=== PATIENT | male | born 1975 | race Caucasian/White ===

== ENCOUNTER 2019-03-13 16:33 | Emergency (ER) | payer OTHER, SELFPAY ==
[2019-03-13 17:02] VITALS: BP 167/104; PULSE 92; RESP 18; TEMP 36.6; O2SAT 97; BMI 34.3
--- NOTE | 2019-03-13 18:39 | XR_ITS ---
WS: [id number] CHEST 2 VIEWS HISTORY: cough COMPARISON: 05/11/2006 Lungs: Clear with no abnormality. No pleural effusion or pneumothorax. Cardiac size: Normal. Mediastinum/Aorta: Normal mediastinum. Bones: Degenerative changes at the AC joints. XR/XR chest 2V* [id number] IMPRESSION: Normal chest.
--- NOTE | 2019-03-13 20:55 | W.ED.URI ---
HPI - URI/Sore Throat General: Chief Complaint: Upper Respiratory Infection Stated Complaint: face swelling Time Seen by Provider: 03/13/19 20:48 History of Present Illness: HPI Narrative: Patient has had nasal congestion, productive cough and chills starting 6 days ago. He has had nasal drainage but no sore throat. Patient also woke up today and had some right-sided facial swelling and tenderness upon palpation. Patient states he has had a productive cough has been coughing up yellow and white phlegm. He has had the chills but no fever. Denies any nausea, vomiting, abdominal pain, dysuria, hematuria, constipation, diarrhea, blood in the stool, vision changes, ear pain, headache, weakness or numbness and tingling to the extremities. Review of Systems General: Reports: 10 or more systems reviewed and unremarkable except in HPI and below PFSH ED PFSH: Statuses (acute, chronic, etc) shown below reflect problem list status as previously entered and may not be historically accurate Social History Smoking and tobacco status: current every day smoker Physical Exam Const: COMMON NORMALS: oriented x3 HENMT: COMMON NORMALS: normocephalic, TM's normal bilaterally and external nose normal HEAD & SCALP: normocephalic FACE & SINUS: sinuses nontender, facial edema (upper maxillary) on the right and facial tenderness (maxillary) on the right NOSE: external nose normal TYMPANIC MEMBRANE: TM's normal bilaterally MOUTH: oral and palatal mucosa normal TEETH & GINGIVA: Yes caries (teeth 4-6 ), Yes gingiva abnormal (around teeth 4-6) edematous and tender and Yes poor dentition THROAT: posterior oropharynx normal and uvula midline Eye: COMMON NORMALS: PERRL and conjunctivae normal GENERAL EYE: normal appearance of both eyes CONJUNCTIVA: Yes conjunctivae normal PUPIL: Yes PERRL Neck/C-Spine: COMMON NORMALS: supple GENERAL: Yes normal visual inspection Resp: COMMON NORMALS: normal respiratory effort, no retractions, no use of accessory muscles and clear to auscultation bilaterally AUSCULTATION: clear to auscultation bilaterally and wheezes expiratory wheezes and throughout Cardio: COMMON NORMALS: regular rate, regular rhythm, S1 normal heart sound, S2 normal heart sound, no gallops, no clicks, no murmurs and peripheral pulses 2+ throughout RATE: regular rate RHYTHM: regular rhythm HEART SOUNDS: S1 normal and S2 normal PERIPHERAL PULSES: pulses 2+ throughout GI: COMMON NORMALS: normal to inspection, nondistended, normoactive bowel sounds, soft to palpation, non-tender and no masses PALPATION: Yes soft : COMMON NORMALS: Yes no CVA tenderness BLADDER/KIDNEY EXAM: Yes no CVA tenderness Back/Pelvis: COMMON NORMALS: no CVA tenderness Neuro: COMMON NORMALS: oriented x3 Course ED course: Patient was given a breathing treatment (DuoNeb) in the ED. He'll be sent home with albuterol inhaler. Chest x-ray was performed and pending final radiologist's report. I reviewed the chest x-ray looked like patient has acute bronchitis and possible pneumonia forming. Patient will be put on an antibiotic and steroid. Vital Signs: Vital signs: Vital Signs Temperature 97.8 F 03/13/19 17:02 Pulse Rate 85 03/13/19 23:26 Respiratory Rate 18 03/13/19 23:26 Blood Pressure 132/76 03/13/19 23:26 Pulse Oximetry 95 03/13/19 23:26 MDM - URI/Sore Throat Lab Data: Labs: Lab Results 03/13/19 03/13/19 03/13/19 Range/Units 21:56 22:04 22:04 WBC 12.5 H (4.0-10.0) 10^3/ uL RBC 4.81 (4.1-5.3) 10^6/u L Hgb 15.0 (11.7-16.6) g/dL Hct 44.7 (42.0-52.0) % MCV 92.9 (80-94) fL MCH 31.2 (28.0-34.0) pg MCHC 33.6 (30.0-36.0) g/dL RDW 11.9 L (12.1-15.1) % Plt Count 343 (130-400) 10^3/c mm MPV 8.6 (7.4-10.4) fL Neut % (Auto) 62.9 % Lymph % (Auto) 26.9 % [place] % (Auto) 7.5 % Eos % (Auto) 2.0 % Baso % (Auto) 0.4 % Neut # (Auto) 7.8 H (1.8-7.7) 10^3/u L Lymph # (Auto) 3.4 (0.8-4.8) 10^3/u L [place] # (Auto) 0.9 (0.2-0.9) 10^3/u L Eos # (Auto) 0.3 (0.0-0.8) 10^3/u L Baso # (Auto) 0.1 (0.0-0.1) 10^3/u L Nucleated RBC % (a uto) 0 % Nucleated RBCs # 0.0 /100WBC Sodium 136 (136-145) mmol/L Potassium 3.6 (3.5-5.1) mmol/L Chloride 97 L (98-107) mmol/L Carbon Dioxide 27 (22-29) mmol/L Anion Gap 15.6 (5-19) BUN 8 (6-20) mg/dL Creatinine 0.8 (0.7-1.2) mg/dL GFR Calculation 106.5 (90-130) mL/min Glucose 113 H (74-109) mg/dL Calcium 9.8 (8.6-10.0) mg/Dl Total Bilirubin 0.4 (0.15-1.2) mg/dL AST 28 (0-40) U/L ALT 25 (0-41) U/L Alkaline Phosphata se 158 H (40-130) IU/L Total Protein 7.8 (6.6-8.7) g/dL Albumin 4.6 (3.5-5.2) g/dL Globulin 3.2 (1.3-4.6) g/dL Influenza Type A A g Negative (Negative) POC Influenza B Ag Negative (Negative) Discharge Plan Discharge Patient Disposition: Home, Self-Care Clinical Impression: Bronchitis with acute wheezing, Dental abscess Condition: Stable Prescriptions: New prednisone 20 mg tablet 20 mg PO TID Qty: 15 RF: 0 clindamycin HCl 150 mg capsule 150 mg PO Q6H 7 Days Qty: 28 RF: 0 albuterol sulfate 90 mcg/actuation HFA aerosol inhaler 2 inh INHALATION Q8H PRN (Reason: shortness of breath or wheezing) Qty: 18 RF: 0 No Action No Known Home Medications RF: 0 Discharge Orders: Discharge Order (Routine); Ordered 03/13/19 Ordered By: Sohail Hendrickson Discharge Diet: Regular Discharge Activity: Resume usual activity Activity Restrictions/Additional Instructions: Follow-up with her primary care doctor in 5-7 days for reevaluation. Take full course of antibiotics and steroids as prescribed. Also use prescribed albuterol inhaler as needed for shortness of breath and wheezing. Also schedule an appointment with a dentist to evaluate possible dental abscess and dental pain. Take [id number] Tylenol or ibuprofen as needed for pain and fever control. Discharge Date/Time: 03/13/19 23:29 Coding Level of Care Code ED [employer] for Kirti Lancaster
[2019-03-13] MEDS: predniSONE 20 mg Tablet 60 MG PO (21:37)
[2019-03-13] MEDS: ketorolac 30 mg/mL INJ IM (21:37)
[2019-03-13] MEDS: ipratropium-albuterol 3 mL Neb INHALATION (22:07)
[2019-03-13 22:08] VITALS: PULSE 85; RESP 18; O2SAT 97
[2019-03-13 22:11] VITALS: PULSE 75; RESP 18; O2SAT 99
[2019-03-13 22:19] LABS: Influenza A by IFA Negative (Negative); Influenza B by IFA Negative (Negative)
[2019-03-13 22:19] LABS: Basophils # 0.1 10^3/uL (0.0-0.1); Basophils % 0.4 %; Eosinophils # 0.3 10^3/uL (0.0-0.8); Hematocrit 44.7 % (42.0-52.0); Lymphocytes # 3.4 10^3/uL (0.8-4.8); Lymphocytes % 26.9 %; Mean Corpuscular HGB Conc 33.6 g/dL (30.0-36.0); Mean Corpuscular Hemoglobin 31.2 pg (28.0-34.0); Mean Corpuscular Volume 92.9 fL (80-94); Mean Platelet Volume 8.6 fL (7.4-10.4); Monocytes # 0.9 10^3/uL (0.2-0.9); Monocytes % 7.5 %; Neutrophils # 7.8 10^3/uL (1.8-7.7); Neutrophils % 62.9 %; Nucleated Red Blood Cells % 0 %; Platelet Count 343 10^3/cmm (130-400); Red Blood Count 4.81 10^6/uL (4.1-5.3); Red Cell Distribution Width 11.9 % (12.1-15.1); White Blood Count 12.5 10^3/uL (4.0-10.0)
[2019-03-13 22:28] LABS: Alanine Aminotransferase 25 U/L (0-41); Albumin Level 4.6 g/dL (3.5-5.2); Alkaline Phosphatase 158 IU/L (40-130); Anion Gap 15.6 (5-19); Aspartate Amino Transferase 28 U/L (0-40); Blood Urea Nitrogen 8 mg/dL (6-20); Calcium 9.8 mg/Dl (8.6-10.0); Carbon Dioxide 27 mmol/L (22-29); Chloride 97 mmol/L (98-107); Globulin 3.2 g/dL (1.3-4.6); Glomerular Filtration Rate 106.5 mL/min (90-130); Glucose 113 mg/dL (74-109); Potassium 3.6 mmol/L (3.5-5.1); Sodium 136 mmol/L (136-145); Total Bilirubin 0.4 mg/dL (0.15-1.2); Total Protein 7.8 g/dL (6.6-8.7)
[2019-03-13 23:26] VITALS: BP 132/76; PULSE 85; RESP 18; O2SAT 95
== END 2019-03-13 23:29 | disposition home or self-care (01) ==
PROVIDERS: Emergency Provider Physician Assistant
DX: J40 Bronchitis, not specified as acute or chronic (principal); K04.7 Periapical abscess without sinus; F17.210 Nicotine dependence, cigarettes, uncomplicated
CPT/HCPCS: 36415; 71046; 80053; 85025; 87040; 87804; 96372; 99282; 99283; J1885; J7512

== ENCOUNTER 2019-05-02 23:56 | Inpatient (IN) | payer OTHER, SELFPAY ==
[2019-05-03] VITALS (52 sets, daily range): BP systolic 97–137; BP diastolic 48–80; PULSE 76–106; RESP 14–24; TEMP 36.6–38.1; O2SAT 92–98; BMI 34.3
--- NOTE | 2019-05-03 00:13 | ED_ITS ---
Documented by User: ARCHANA Morrison 05/03/19 02:28 HPI - Abdominal Pain General: Chief Complaint: Abdominal Pain Stated Complaint: ABD PAIN Time Seen by Provider: 05/03/19 00:10 History of Present Illness: HPI narrative: Patient is a 44-year-old male comes in to the ED with abdominal pain. Patient first had nausea and vomiting and loss of appetite yesterday. He was having some mild periumbilical pain that has since progressed and gotten worse and now it has moved down into the right lower quadrant. The pain in the abdomen got worse while he was sleeping tonight and he woke up in intense pain. Associated Symptoms: Reports nausea and vomiting; Denies chills, constipation, diarrhea, dysuria, fever(s), hematochezia and hematuria Review of Systems Const: Reports: change in appetite (decrease in appetite); Denies: fever, chills or fatigue Eyes: Denies: change in vision or eye discomfort ENMT: Denies: throat pain, painful swallowing, nasal discharge or nasal congestion Card: Denies: chest pain, palpitations, edema, swelling of feet/ankles, shortness of breath on exertion or shortness of breath when lying down Resp: Denies: shortness of breath, productive cough or non-productive cough GI: Reports: abdominal pain, nausea and vomiting; Denies: diarrhea, constipation or blood in stool : Denies: flank pain, difficulty urinating, painful urination or blood in urine Musc: Denies: neck pain, back pain or extremity swelling Skin/Breast: Denies: rash or new lesion Neuro: Denies: headache, numbness in extremities or weakness in extremities PFS ED PFSH: Social History Smoking and tobacco status: current every day smoker Physical Exam Narrative: EXAM NARRATIVE: Patient is a 44-year-old male who appears in acute pain distress lying in the room. He was lying flat and moaning in pain. His face looked pale. He was showing no signs of respiratory distress. Patient was severely tender in the right lower quadrant of the abdomen. Patient also had some rebound tenderness as well. Patient's abdomen was extremely tender and even tender to light touch. Const: COMMON NORMALS: oriented x3 HENMT: COMMON NORMALS: normocephalic HEAD & SCALP: normocephalic MOUTH: oral and palatal mucosa normal THROAT: posterior oropharynx normal and uvula midline Neck/C-Spine: COMMON NORMALS: supple GENERAL: Yes normal visual inspection Resp: COMMON NORMALS: normal respiratory effort, no retractions, no use of accessory muscles and clear to auscultation bilaterally EFFORT & INSPECTION: Yes tachypneic AUSCULTATION: clear to auscultation bilaterally Cardio: COMMON NORMALS: regular rate, regular rhythm, S1 normal heart sound, S2 normal heart sound, no gallops, no clicks, no murmurs and peripheral pulses 2+ throughout RATE: regular rate RHYTHM: regular rhythm HEART SOUNDS: S1 normal and S2 normal PERIPHERAL PULSES: pulses 2+ throughout GI: COMMON NORMALS: normal to inspection, nondistended, normoactive bowel sounds, soft to palpation and no masses AUSCULTATION: Yes normoactive bowel sounds PALPATION: Yes soft and Yes tender (mcburney pt tenderness, Rovsings sign positive.) Details: RLQ : COMMON NORMALS: Yes no CVA tenderness BLADDER/KIDNEY EXAM: Yes no CVA tenderness Back/Pelvis: COMMON NORMALS: no CVA tenderness Extremity: COMMON NORMALS: normal to inspection Neuro: COMMON NORMALS: oriented x3 GAIT: Yes normal gait Skin: COMMON NORMALS: no rashes or lesions noted GENERAL SKIN EXAM: no rashes or lesions noted, dry skin and pallor (face) Course Vital Signs: Vital signs: Vital Signs Temperature 97.8 F 05/03/19 00:09 Pulse Rate 91 05/03/19 02:05 Respiratory Rate 24 H 05/03/19 00:37 Blood Pressure 108/48 05/03/19 02:05 Pulse Oximetry 95 05/03/19 02:05 MDM - Abdominal Pain MDM Narrative: Medical decision making narrative: Patient is a 44-year-old male comes into the ED with abdominal pain nausea and vomiting. Patient had an elevated white blood cell count of 22.5 and a lactate of 2.4. CT of the abdomen was performed and showed Acute appendicitis with perforationl. Dr. Mcconnell was informed about this case and he talked with the General Surgeon site acquisition manager. Dr. Mcconnell will be taking over this case and handling admission to Gen. Surg. Lab Data: Attestation: I reviewed the patient's lab results. Labs: Lab Results 05/03/19 05/03/19 05/03/19 Range/Units 00:18 00:18 00:18 WBC 22.5 H (4.0-10.0) 10^3/ uL RBC 4.84 (4.1-5.3) 10^6/u L Hgb 14.6 (11.7-16.6) g/dL Hct 43.5 (42.0-52.0) % MCV 89.9 (80-94) fL MCH 30.2 (28.0-34.0) pg MCHC 33.6 (30.0-36.0) g/dL RDW 12.0 L (12.1-15.1) % Plt Count 339 (130-400) 10^3/c mm MPV 8.5 (7.4-10.4) fL Neut % (Auto) 91.0 % Lymph % (Auto) 5.0 % [place] % (Auto) 3.2 % Eos % (Auto) 0.1 % Baso % (Auto) 0.2 % Neut # (Auto) 20.5 H (1.8-7.7) 10^3/u L Lymph # (Auto) 1.1 (0.8-4.8) 10^3/u L [place] # (Auto) 0.7 (0.2-0.9) 10^3/u L Eos # (Auto) 0.0 (0.0-0.8) 10^3/u L Baso # (Auto) 0.0 (0.0-0.1) 10^3/u L Nucleated RBC % (a uto) 0 % Nucleated RBCs # 0.0 /100WBC Sodium 135 L (136-145) mmol/L Potassium 3.4 L (3.5-5.1) mmol/L Chloride 96 L (98-107) mmol/L Carbon Dioxide 23 (22-29) mmol/L Anion Gap 19.4 H (5-19) BUN 11 (6-20) mg/dL Creatinine 1.0 (0.7-1.2) mg/dL GFR Calculation 81.9 L (90-130) mL/min Glucose 144 H (65-115) mg/dL Lactate 2.4 H (0.5-2.2) mmol/L Calcium 9.7 (8.5-10.5) mg/dL Total Bilirubin 0.6 (0.15-1.2) mg/dL AST 23 (0-40) U/L ALT 19 (0-41) U/L Alkaline Phosphata se 132 H (40-130) IU/L Total Protein 6.8 (6.6-8.7) g/dL Albumin 4.3 (3.5-5.2) g/dL Globulin 2.5 (1.3-4.6) g/dL Lipase 14 (13-60) U/L Imaging Data ^: CT Abd/Pel: Attestation: I personally reviewed and interpreted this imaging study as follows: Radiologist's impression: [place] [address] CT Scan Report Signed with Addenda Patient: Onel Rea Unit #: [id number] : 1975 Age/Sex: 44 / M ADM Date: 05/02/19 Loc: ER Room/Bed: Attending Dr: Ordering Provider/Ordering MD: Sohail Hendrickson Date of Service: 05/03/19 Procedure(s): CT abdomen pelvis w con* [id number] Accession Number(s): [id number] Report Number: [id number]/CT abdomen pelvis w con* [id number] THIS REPORT CONTAINS FINDINGS THAT MAY BE CRITICAL TO PATIENT CARE. The findings were verbally communicated via telephone conference with Dr Mcconnell at 2:15 AM RECORD CHANGER TESTER on 05/03/2019. The findings were acknowledged and understood. Radiation Dose CTDIVOL = (mGy): DLP = 1269.6 (mGy-cm) Addendum Dictated By: Kamaljit Robbins MD Addendum Signed By: Kamaljit Robbins MD Signed Date/Time: 0217 Addendum Cosigned By: PROCEDURE INFORMATION: Exam: CT Abdomen And Pelvis With Contrast Exam date and time: 05/03/2019 12:31 AM Age: 44 years old Clinical indication: Abdominal pain; Additional info: Abdom pain TECHNIQUE: Imaging protocol: Computed tomography of the abdomen and pelvis with intravenous contrast. Total DLP: 1269.6 mGy-cm Radiation optimization: All CT scans at this facility use at least one of these dose optimization techniques: automated exposure control; mA and/or kV adjustment per patient size (includes targeted exams where dose is matched to clinical indication); or iterative reconstruction. Contrast material: OMNI 300; Contrast volume: 95 ml; Contrast route: 189G; COMPARISON: No relevant prior studies available. FINDINGS: Lungs: Lung bases are clear. Heart: 5 cm pericardial cyst in the right cardiophrenic sulcus. Liver: The liver is normal. Gallbladder and bile ducts: The gallbladder is normal. There is no biliary dilation. Pancreas: The pancreas is unremarkable. Spleen: The spleen is unremarkable. Adrenals: The adrenal glands are unremarkable. Kidneys and ureters: The kidneys are unremarkable. No hydronephrosis or stones. No ureteral dilation. Stomach and bowel: The stomach is unremarkable. The small bowel is nondilated. There is no sign of inflammation. The colon is unremarkable. Appendix: The appendix is dilated to 10 mm and there is extensive periappendiceal edema. There is an appendicolith in the lumen at the base. There is gas within the appendiceal wall and trace gas outside the lumen adjacent to the appendix. Intraperitoneal space: Trace intraperitoneal free air. See axial series 2, image 51, 54, 57, 62, and 14. No intraperitoneal free fluid. Vasculature: There is mild aortic atherosclerotic disease. Lymph nodes: There is no lymphadenopathy in the retroperitoneum, mesentery, pelvis or inguinal regions. Bladder: The urinary bladder is unremarkable. Reproductive: The prostate and seminal vesicles are unremarkable. Bones/joints: Bones are unremarkable. Soft tissues: The abdominal wall is intact. CT/CT abdomen pelvis w con* [id number] IMPRESSION: 1. Acute appendicitis. 2. Appendiceal perforation with trace intraperitoneal free air. No abscess. Radiation Dose CTDIVOL = (mGy): DLP = 1269.6 (mGy-cm) Dictated By: Kamaljit Robbins MD Signed By: Kamaljit Robbins MD Signed Date/Time: 05/03/19214 DD/ 2 Discharge Plan Discharge Patient Disposition: Admitted As Inpatient Admit Provider: Emiliano Jarrett Clinical Impression: Acute appendicitis with perforation and generalized peritonitis Qualifiers: Appendicitis gangrene presence: without gangrene Appendicitis abscess presence: without abscess Qualified Code(s): K35.20 - Acute appendicitis with generalized peritonitis, without abscess Condition: Stable Patient Instructions: Appendicitis (GEN) Coding Level of Care Code ED [employer] for Maria Guadalupeg Fwd Exam Comprehensive Documented by User: Beth Mcconnell 05/03/19 02:44 HPI - Abdominal Pain General: Chief Complaint: Abdominal Pain Stated Complaint: ABD PAIN Time Seen by Provider: 05/03/19 00:10 PFS ED PFSH: Social History Smoking and tobacco status: current every day smoker Course Vital Signs: Vital signs: Vital Signs Temperature 97.8 F 05/03/19 00:09 Pulse Rate 91 05/03/19 02:05 Respiratory Rate 24 H 05/03/19 00:37 Blood Pressure 108/48 05/03/19 02:05 Pulse Oximetry 95 05/03/19 02:05 MDM - Abdominal Pain MDM Narrative: Medical decision making narrative: 0230 -Case was reviewed in full with Dr. Jarrett by me Dr. Mcconnell. Patient CT scan including perforation and peritonitis present on exam were shared with him. He agrees and he will take the patient to the operating room. He asked that basic admission orders be placed including antibiotics and continued fluid resuscitation and he will see the patient in the hospital. At this time the patient does have peritonitis on exam but is hemodynamically stable and comfortable at rest. He is feeling better than when he arrived. Lab Data: Labs: Lab Results 05/03/19 05/03/19 05/03/19 Range/Units 00:18 00:18 00:18 WBC 22.5 H (4.0-10.0) 10^3/ uL RBC 4.84 (4.1-5.3) 10^6/u L Hgb 14.6 (11.7-16.6) g/dL Hct 43.5 (42.0-52.0) % MCV 89.9 (80-94) fL MCH 30.2 (28.0-34.0) pg MCHC 33.6 (30.0-36.0) g/dL RDW 12.0 L (12.1-15.1) % Plt Count 339 (130-400) 10^3/c mm MPV 8.5 (7.4-10.4) fL Neut % (Auto) 91.0 % Lymph % (Auto) 5.0 % [place] % (Auto) 3.2 % Eos % (Auto) 0.1 % Baso % (Auto) 0.2 % Neut # (Auto) 20.5 H (1.8-7.7) 10^3/u L Lymph # (Auto) 1.1 (0.8-4.8) 10^3/u L [place] # (Auto) 0.7 (0.2-0.9) 10^3/u L Eos # (Auto) 0.0 (0.0-0.8) 10^3/u L Baso # (Auto) 0.0 (0.0-0.1) 10^3/u L Nucleated RBC % (a uto) 0 % Nucleated RBCs # 0.0 /100WBC Sodium 135 L (136-145) mmol/L Potassium 3.4 L (3.5-5.1) mmol/L Chloride 96 L (98-107) mmol/L Carbon Dioxide 23 (22-29) mmol/L Anion Gap 19.4 H (5-19) BUN 11 (6-20) mg/dL Creatinine 1.0 (0.7-1.2) mg/dL GFR Calculation 81.9 L (90-130) mL/min Glucose 144 H (65-115) mg/dL Lactate 2.4 H (0.5-2.2) mmol/L Calcium 9.7 (8.5-10.5) mg/dL Total Bilirubin 0.6 (0.15-1.2) mg/dL AST 23 (0-40) U/L ALT 19 (0-41) U/L Alkaline Phosphata se 132 H (40-130) IU/L Total Protein 6.8 (6.6-8.7) g/dL Albumin 4.3 (3.5-5.2) g/dL Globulin 2.5 (1.3-4.6) g/dL Lipase 14 (13-60) U/L Imaging Data ^: CT Abd/Pel: Radiologist's impression: [address] [address] [address] Scan Report Signed with John Patient: Onel Rea Unit #: [id number] : 1975 Age/Sex: 44 / M ADM Date: 05/02/19 Loc: ER Room/Bed: Attending Dr: Ordering Provider/Ordering MD: Sohail Hendrickson Date of Service: 05/03/19 Procedure(s): CT abdomen pelvis w con* [id number] Accession Number(s): [id number] Report Number: [id number]/CT abdomen pelvis w con* [id number] THIS REPORT CONTAINS FINDINGS THAT MAY BE CRITICAL TO PATIENT CARE. The findings were verbally communicated via telephone conference with Dr Mcconnell at 2:15 AM RECORD CHANGER TESTER on 05/03/2019. The findings were acknowledged and understood. Radiation Dose CTDIVOL = (mGy): DLP = 1269.6 (mGy-cm) Addendum Dictated By: Kamaljit Robbins MD Addendum Signed By: Kamaljit Robbins MD Signed Date/Time: 216 Addendum Cosigned By: PROCEDURE INFORMATION: Exam: CT Abdomen And Pelvis With Contrast Exam date and time: 05/03/2019 12:31 AM Age: 44 years old Clinical indication: Abdominal pain; Additional info: Abdom pain TECHNIQUE: Imaging protocol: Computed tomography of the abdomen and pelvis with intravenous contrast. Total DLP: 1269.6 mGy-cm Radiation optimization: All CT scans at this facility use at least one of these dose optimization techniques: automated exposure control; mA and/or kV adjustment per patient size (includes targeted exams where dose is matched to clinical indication); or iterative reconstruction. Contrast material: OMNI 300; Contrast volume: 95 ml; Contrast route: 189G; COMPARISON: No relevant prior studies available. FINDINGS: Lungs: Lung bases are clear. Heart: 5 cm pericardial cyst in the right cardiophrenic sulcus. Liver: The liver is normal. Gallbladder and bile ducts: The gallbladder is normal. There is no biliary dilation. Pancreas: The pancreas is unremarkable. Spleen: The spleen is unremarkable. Adrenals: The adrenal glands are unremarkable. Kidneys and ureters: The kidneys are unremarkable. No hydronephrosis or stones. No ureteral dilation. Stomach and bowel: The stomach is unremarkable. The small bowel is nondilated. There is no sign of inflammation. The colon is unremarkable. Appendix: The appendix is dilated to 10 mm and there is extensive periappendiceal edema. There is an appendicolith in the lumen at the base. There is gas within the appendiceal wall and trace gas outside the lumen adjacent to the appendix. Intraperitoneal space: Trace intraperitoneal free air. See axial series 2, image 51, 54, 57, 62, and 14. No intraperitoneal free fluid. Vasculature: There is mild aortic atherosclerotic disease. Lymph nodes: There is no lymphadenopathy in the retroperitoneum, mesentery, pelvis or inguinal regions. Bladder: The urinary bladder is unremarkable. Reproductive: The prostate and seminal vesicles are unremarkable. Bones/joints: Bones are unremarkable. Soft tissues: The abdominal wall is intact. CT/CT abdomen pelvis w con* [id number] IMPRESSION: 1. Acute appendicitis. 2. Appendiceal perforation with trace intraperitoneal free air. No abscess. Radiation Dose CTDIVOL = (mGy): DLP = 1269.6 (mGy-cm) Dictated By: Kamaljit Robbins MD Signed By: Kamaljit Robbins MD Signed Date/Time: 05/03/19214 DD/ 2 Discharge Plan Discharge Patient Disposition: Admitted As Inpatient Admit Provider: Emiliano Jarrett Clinical Impression: Acute appendicitis with perforation and generalized peritonitis Qualifiers: Appendicitis gangrene presence: without gangrene Appendicitis abscess presence: without abscess Qualified Code(s): K35.20 - Acute appendicitis with generalized peritonitis, without abscess Condition: Stable Patient Instructions: Appendicitis (GEN) Coding Level of Care Code ED [employer] for g Fwd Exam Comprehensive
[2019-05-03 00:24] LABS: Basophils % 0.2 %; Eosinophils % 0.1 %; Hematocrit 43.5 % (42.0-52.0); Hemoglobin 14.6 g/dL (11.7-16.6); Lymphocytes # 1.1 10^3/uL (0.8-4.8); Mean Corpuscular HGB Conc 33.6 g/dL (30.0-36.0); Mean Corpuscular Hemoglobin 30.2 pg (28.0-34.0); Mean Corpuscular Volume 89.9 fL (80-94); Mean Platelet Volume 8.5 fL (7.4-10.4); Monocytes # 0.7 10^3/uL (0.2-0.9); Monocytes % 3.2 %; Neutrophils # 20.5 10^3/uL (1.8-7.7); Nucleated Red Blood Cells % 0 %; Platelet Count 339 10^3/cmm (130-400); Red Blood Count 4.84 10^6/uL (4.1-5.3); White Blood Count 22.5 10^3/uL (4.0-10.0)
--- NOTE | 2019-05-03 00:28 | CTR_ITS ---
PROCEDURE INFORMATION: Exam: CT Abdomen And Pelvis With Contrast Exam date and time: 05/03/2019 12:31 AM Age: 44 years old Clinical indication: Abdominal pain; Additional info: Abdom pain TECHNIQUE: Imaging protocol: Computed tomography of the abdomen and pelvis with intravenous contrast. Total DLP: 1269.6 mGy-cm Radiation optimization: All CT scans at this facility use at least one of these dose optimization techniques: automated exposure control; mA and/or kV adjustment per patient size (includes targeted exams where dose is matched to clinical indication); or iterative reconstruction. Contrast material: OMNI 300; Contrast volume: 95 ml; Contrast route: 189G; COMPARISON: No relevant prior studies available. FINDINGS: Lungs: Lung bases are clear. Heart: 5 cm pericardial cyst in the right cardiophrenic sulcus. Liver: The liver is normal. Gallbladder and bile ducts: The gallbladder is normal. There is no biliary dilation. Pancreas: The pancreas is unremarkable. Spleen: The spleen is unremarkable. Adrenals: The adrenal glands are unremarkable. Kidneys and ureters: The kidneys are unremarkable. No hydronephrosis or stones. No ureteral dilation. Stomach and bowel: The stomach is unremarkable. The small bowel is nondilated. There is no sign of inflammation. The colon is unremarkable. Appendix: The appendix is dilated to 10 mm and there is extensive periappendiceal edema. There is an appendicolith in the lumen at the base. There is gas within the appendiceal wall and trace gas outside the lumen adjacent to the appendix. Intraperitoneal space: Trace intraperitoneal free air. See axial series 2, image 51, 54, 57, 62, and 14. No intraperitoneal free fluid. Vasculature: There is mild aortic atherosclerotic disease. Lymph nodes: There is no lymphadenopathy in the retroperitoneum, mesentery, pelvis or inguinal regions. Bladder: The urinary bladder is unremarkable. Reproductive: The prostate and seminal vesicles are unremarkable. Bones/joints: Bones are unremarkable. Soft tissues: The abdominal wall is intact. CT/CT abdomen pelvis w con* [id number] IMPRESSION: 1. Acute appendicitis. 2. Appendiceal perforation with trace intraperitoneal free air. No abscess. Radiation Dose CTDIVOL = (mGy): DLP = 1269.6 (mGy-cm)
[2019-05-03] MEDS: morphine 4 mg/mL SDV 1 mL IVP ×2 (00:37→04:26)
[2019-05-03] MEDS: ondansetron 2 mg/ML SDV 2 mL 4 MG IVP (00:37)
[2019-05-03] MEDS: sodium chloride 0.9% 1,000 ML 999 ML IV (00:38)
[2019-05-03 00:46] LABS: Alanine Aminotransferase 19 U/L (0-41); Albumin Level 4.3 g/dL (3.5-5.2); Alkaline Phosphatase 132 IU/L (40-130); Anion Gap 19.4 (5-19); Aspartate Amino Transferase 23 U/L (0-40); Blood Urea Nitrogen 11 mg/dL (6-20); Calcium 9.7 mg/dL (8.5-10.5); Carbon Dioxide 23 mmol/L (22-29); Chloride 96 mmol/L (98-107); Globulin 2.5 g/dL (1.3-4.6); Glomerular Filtration Rate 81.9 mL/min (90-130); Glucose 144 mg/dL (65-115); Lipase 14 U/L (13-60); Potassium 3.4 mmol/L (3.5-5.1); Sodium 135 mmol/L (136-145); Total Bilirubin 0.6 mg/dL (0.15-1.2); Total Protein 6.8 g/dL (6.6-8.7)
[2019-05-03 00:57] LABS: Lactate (Lactic Acid level) 2.4 mmol/L (0.5-2.2)
--- NOTE | 2019-05-03 01:19 | PC.NURSE ---
to CT at this time
[2019-05-03] MEDS: iohexol 300 mg/mL 100 mL Btl IV (01:24)
[2019-05-03] MEDS: sodium chloride 0.9% 2,721.54 ML 2721.5 ML IV (02:07)
[2019-05-03] MEDS: metroNIDAZOLE IV 500 MG/100 ML PREMIX 100 MG IV ×4 (02:34→17:51)
--- NOTE | 2019-05-03 02:47 | PC.NURSE ---
report called to [facility] [place] [facility]
[2019-05-03] MEDS: levofloxacin-dextrose 5 % 750 MG/150 ML PREMIX 150 MG IV (03:10)
[2019-05-03] MEDS: sodium chloride 0.9% 1,000 ML 200 ML IV (03:57)
--- NOTE | 2019-05-03 04:52 | PM.HP ---
Providers/Chief Complaint Admitting Physician: Emiliano Jarrett MD Chief Complaint: ABD PAIN History of Present Illness Onel Rea is a 44 year old male who says he awoke yesterday morning with nausea and diarrhea. He had several episodes of vomitus. He did not see any evidence of hematemesis. He said he actually started feeling better during the day and denies any obvious fevers or chills. He was not feeling very well last night and describes having some epigastric discomfort. He went to bed but then awoke later with rather severe pain in the lower abdomen. He presented to the emergency room and a CAT scan showed evidence of acute appendicitis with possible early perforation. Review of Systems General: Reports: 10 or more systems reviewed and unremarkable except in HPI and below Const: Denies: fever Resp: Reports: other (Occasional wheezing/bronchitis. The patient does have an albuterol inhaler he uses only as needed.) Neuro: Reports: other (Previous diagnosis of occipital neuralgia, symptoms worse on the right side) Medications/Allergies Home Medications Medication Instructions Recorded Confirmed Last Taken Type albuterol sulfate 2 inh INHALATION Q8H PRN 05/03/19 05/03/19 Unknown History multivitamin 1 cap PO DAILY 05/03/19 05/03/19 Unknown History Allergies Allergy/AdvReac Type Severity Reaction Status Date / Time amoxicillin Allergy High fever Verified 05/03/19 05:22 PFSH Acute PFSH: Medical History (Updated 05/03/19 @ 05:15 by Emiliano Jarrett MD) Bronchitis Occipital neuralgia primarily R side affected Surgical History (Updated 05/03/19 @ 05:09 by Emiliano Jarrett MD) No significant past surgical history Social History (Updated 05/03/19 @ 05:17 by Emiliano Jarrett MD) Smoking and tobacco status: current every day smoker cigarettes Packs smoked per day: 0.75 Years cigarettes smoked: 25 [ Other cigarette details: The patient smokes under a pack of cigarettes a day but has been smoking for nearly 30 years ] Alcohol intake: current Alcohol intake frequency: few times a month Current occupational status: employed Current occupation: Employed at a [employer] Vitals/I&O/Wt Last Vital Signs Temp 99.7 F H 05/03/19 04:00 Pulse 96 05/03/19 04:00 Resp 20 H 05/03/19 04:26 BP 111/71 05/03/19 04:00 Pulse Ox 98 05/03/19 04:00 05/02/19 05/02/19 05/03/19 14:59 22:59 06:59 Intake Total 1100 / 1100 Output Total 300 / 300 Balance 800 / 800 Weight last 48 hrs Weight 218 lb Weight 200 lb Physical Exam Narrative: EXAM NARRATIVE: The patient was encountered in his hospital room. He does not appear to be in any acute distress but acts as if he just does not feel very well. The pupils seem equal. No carotid bruits are heard. The lungs reveal some mild inspiratory and expiratory wheezes bilaterally. The heart is regular. The abdomen reveals hypoactive bowel sounds and is moderately obese. He has rather diffuse tenderness across the lower abdomen but more significant tenderness of the right lower quadrant. No obvious masses are palpated. The extremities reveal no edema. Neurologically the patient appears to be grossly intact. Data : 05/03/19 00:18 05/03/19 00:18 Micro: Microbiology 05/03/19 00:19 Blood Culture - Preliminary Blood SPECIMEN COLLECTED 05/03/19 00:18 Blood Culture - Preliminary Blood SPECIMEN COLLECTED CT Abd/Pel: My impression: The patient has a dilated appendix with periappendiceal fat stranding. The appendix travels medially and slightly anteriorly from the cecum. There appears to be some gas in the wall of the appendix. No significant amount of free fluid or abscess is identified. Radiologist's impression: CT abdomen/pelvis 05/02/2019 iMPRESSION: 1. Acute appendicitis. 2. Appendiceal perforation with trace intraperitoneal free air. No abscess. A&P Assessment and plan (1) Acute appendicitis with perforation and generalized peritonitis: I discussed appendicitis with the patient. We discussed both conservative and surgical methods of management. We discussed the fact that he may have an early perforation but there does not appear to be a significant amount of free fluid or abscess. For that reason I have discussed at least starting surgery laparoscopically but there may be a need to convert to an open procedure and he understands that. Otherwise risks of surgery including bleeding, infection, internal organ injury, etc. were all gone over. The patient seems to understand and would like to proceed with an appendectomy this morning. He says he has not had anything to eat or drink in over 24 hours other than a small amount of water last night. I did see that he does have fluid within his gastric lumen on his CAT scan several hours ago, however. Status: Acute Qualifiers: Appendicitis abscess presence: without abscess Appendicitis gangrene presence: without gangrene Qualified Code(s): K35.20 - Acute appendicitis with generalized peritonitis, without abscess Code(s): K35.20 - Acute appendicitis with generalized peritonitis, without abscess Attestations Medical Necessity Statement*: Based on my medical assessment, presenting symptoms, medical accuity and consideration of surgical therapy, I expect this patient will require treatment in the hospital for a period spanning at least 2 midnights. 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
[2019-05-03 05:00] LABS: Bilirubin Urine Neg (NEGATIVE); Blood Urine Neg (Negative); Glucose Urine UA Norm (Normal); Ketones Urine Negative (Negative); Leukocyte Esterase Urine Negative (Negative); Nitrate Urine Negative (Negative); Protein Urine Trace (Negative); Urine Appearance Clear (CLEAR); Urine Color Yellow (Yellow); Urobilinogen Urine Norm (Negative); pH Urine 5 (5-7)
[2019-05-03 05:01] LABS: Hyaline Casts Urine 0-4
[2019-05-03 05:02] LABS: RBC Urine 0-4 /hpf (0-2)
[2019-05-03 05:03] LABS: Add Urine Culture? No; Bacteria Urine TRACE; Squamous Epithelial Cell Urine 0-4 (0-5)
[2019-05-03 05:10] LABS: Basophils % 0.1 %; Hematocrit 39.9 % (42.0-52.0); Hemoglobin 13.1 g/dL (11.7-16.6); Lymphocytes % 4.4 %; Mean Corpuscular HGB Conc 32.8 g/dL (30.0-36.0); Mean Corpuscular Hemoglobin 30.9 pg (28.0-34.0); Mean Corpuscular Volume 94.1 fL (80-94); Mean Platelet Volume 8.6 fL (7.4-10.4); Monocytes # 0.5 10^3/uL (0.2-0.9); Monocytes % 2.1 %; Neutrophils # 20.4 10^3/uL (1.8-7.7); Neutrophils % 92.8 %; Nucleated Red Blood Cells % 0 %; Platelet Count 303 10^3/cmm (130-400); Red Blood Count 4.24 10^6/uL (4.1-5.3); Red Cell Distribution Width 12.4 % (12.1-15.1)
[2019-05-03 05:21] LABS: Partial Thromboplastin Time 31.1 SECONDS (23.9-36.7)
[2019-05-03 05:25] LABS: Alanine Aminotransferase 14 U/L (0-41); Albumin Level 3.3 g/dL (3.5-5.2); Alkaline Phosphatase 99 IU/L (40-130); Anion Gap 15.1 (5-19); Aspartate Amino Transferase 19 U/L (0-40); Blood Urea Nitrogen 10 mg/dL (6-20); Calcium 8.3 mg/dL (8.5-10.5); Carbon Dioxide 20 mmol/L (22-29); Chloride 104 mmol/L (98-107); Globulin 3.2 g/dL (1.3-4.6); Glomerular Filtration Rate 123.7 mL/min (90-130); Glucose 128 mg/dL (65-115); Potassium 4.1 mmol/L (3.5-5.1); Sodium 135 mmol/L (136-145); Total Bilirubin 0.4 mg/dL (0.15-1.2); Total Protein 6.5 g/dL (6.6-8.7)
--- NOTE | 2019-05-03 06:05 | P.ANESASSM_ITS ---
Pre-Anesthetic Assessment Pre-Anesthetic Assessment: Height/Weight: Height 1.63 m Weight 98.883 kg Temp Pulse Resp BP Pulse Ox 99.7 F H 96 20 H 111/71 98 05/03/19 04:00 05/03/19 04:00 05/03/19 04:26 05/03/19 04:00 05/03/19 04:00 Preop Diagnosis: appendicitis Proposed Procedure: Operation Date: 05/03/19 06:00 Proposed Procedures p Laparoscopic Appendectomy(Not Applicable) - Emiliano Jarrett MD Familial anesthetic complications: NO hx of anesthesia Was Beta Sukhjinder taken within 24 hours: N/A Last intake: Intake NPO > 24 hrs Last Liquid Date 05/02/19 Last Liquid Time 04:00 Last Solid Date 05/02/19 Last Solid Time 09:00 Social: Social History: Tobacco and No alcohol Packs per day: 1 ppd Exam: Pre-Anes Outpt Exam: alert, oriented x 3, clear to auscultation bilaterally (B/L wheeze) and regular rate & rhythm Airway: Cervical ROM: WNL MP: 4 Dentition: Chipped Additional comments: missing Pulmonary: Comments: bronchitis 1 month ago - recovering now. using inhaler as needed CV/HEM: CV/HEM: None reported : : None reported Hepatic: Hepatic: None reported GI: GI: None reported Metabolic: Metabolic: Morbid obesity Neuropsych: Neuropsych: Neuropathy Comments: occipital neuralgia Anesthetic Plan: ASA status: 2E Anesthesia: General Risk of > 500 ml blood loss (7ml/kg in children): No Meds/Allergies Current Medications: Current Medications Generic Name Dose Route Start Last Admin Trade Name Freq PRN Reason Stop Dose Admin Sodium Chloride 1,000 mls @ 200 m ls/hr 05/03/19 03:36 05/03/19 04:43 Sodium Chloride 0.9% IV 200 mls/hr .Q5H SHARON Infusion Morphine Sulfate 4 mg 05/03/19 03:36 05/03/19 04:26 Morphine IVP 4 mg Q4H PRN Administration SEVERE PAIN PFSH Anesthesia PFSH: Medical History (Updated 05/03/19 @ 05:15 by Emiliano Jarrett MD) Bronchitis Occipital neuralgia primarily R side affected Surgical History (Updated 05/03/19 @ 05:09 by Emiliano Jarrett MD) No significant past surgical history Social History (Updated 05/03/19 @ 05:17 by Emiliano Jarrett MD) Smoking and tobacco status: current every day smoker cigarettes Packs smoked per day: 0.75 Years cigarettes smoked: 25 [ Other cigarette details: The patient smokes under a pack of cigarettes a day but has been smoking for nearly 30 years ] Alcohol intake: current Alcohol intake frequency: few times a month Current occupational status: employed Current occupation: Employed at a [email or web address] Anesthesia CBC & Chem 7: 05/03/19 00:18 05/03/19 04:52 Other Labs: Laboratory Results - last 48 hr 05/03/19 05/03/19 05/03/19 00:18 00:18 00:18 WBC 22.5 H RBC 4.84 Hgb 14.6 Hct 43.5 MCV 89.9 MCH 30.2 MCHC 33.6 RDW 12.0 L Plt Count 339 MPV 8.5 Neut % (Auto) 91.0 Lymph % (Auto) 5.0 [place] % (Auto) 3.2 Eos % (Auto) 0.1 Baso % (Auto) 0.2 Neut # (Auto) 20.5 H Lymph # (Auto) 1.1 [place] # (Auto) 0.7 Eos # (Auto) 0.0 Baso # (Auto) 0.0 Nucleated RBC % (auto) 0 Nucleated RBCs # 0.0 APTT Sodium 135 L Potassium 3.4 L Chloride 96 L Carbon Dioxide 23 Anion Gap 19.4 H BUN 11 Creatinine 1.0 GFR Calculation 81.9 L Glucose 144 H Lactate 2.4 H Calcium 9.7 Total Bilirubin 0.6 AST 23 ALT 19 Alkaline Phosphatase 132 H Total Protein 6.8 Albumin 4.3 Globulin 2.5 Lipase 14 Urine Color Urine Appearance Urine pH Ur Specific Spur Urine Protein Urine Glucose (UA) Urine Ketones Urine Blood Urine Nitrate Urine Bilirubin Urine Urobilinogen Ur Leukocyte Esterase Urine RBC Urine WBC Ur Squamous Epith Cells Urine Bacteria Hyaline Casts 05/03/19 05/03/19 05/03/19 04:32 04:52 04:52 WBC RBC Hgb Hct MCV MCH MCHC RDW Plt Count MPV Neut % (Auto) Lymph % (Auto) [place] % (Auto) Eos % (Auto) Baso % (Auto) Neut # (Auto) Lymph # (Auto) [place] # (Auto) Eos # (Auto) Baso # (Auto) Nucleated RBC % (auto) Nucleated RBCs # APTT 31.1 Sodium 135 L Potassium 4.1 Chloride 104 Carbon Dioxide 20 L Anion Gap 15.1 BUN 10 Creatinine 0.7 GFR Calculation 123.7 Glucose 128 H Lactate Calcium 8.3 L Total Bilirubin 0.4 AST 19 ALT 14 Alkaline Phosphatase 99 Total Protein 6.5 L Albumin 3.3 L Globulin 3.2 Lipase Urine Color Yellow Urine Appearance Clear Urine pH 5 Ur Specific Spur 1.010 Urine Protein Trace Urine Glucose (UA) Norm Urine Ketones Negative Urine Blood Neg Urine Nitrate Negative Urine Bilirubin Neg Urine Urobilinogen Norm Ur Leukocyte Esterase Negative Urine RBC 0-4 H Urine WBC None Ur Squamous Epith Cells 0-4 H Urine Bacteria Trace Hyaline Casts 0-4 H Micro: Microbiology 05/03/19 00:19 Blood Culture - Preliminary Blood SPECIMEN COLLECTED 05/03/19 00:18 Blood Culture - Preliminary Blood SPECIMEN COLLECTED Cardiac Studies: No Data to Display
[2019-05-03 06:08] LABS: Slide Review Slide Review Perform
[2019-05-03] MEDS: ipratropium-albuterol 3 mL Neb INHALATION (06:19)
[2019-05-03] MEDS: sodium chloride 0.9% 1,000 ML 30 ML IV (06:20)
--- NOTE | 2019-05-03 07:10 | PC.NURSE ---
0710 Spoke with patient's Valeria via private cell phone and gave her an update. Cathy Lam RN
--- NOTE | 2019-05-03 07:22 | P.OP_ITS ---
Operative Report Date of procedure: May 03, 2019 Pre-op Diagnosis: Acute perforated appendicitis with generalized peritonitis Post-op diagnosis: same Procedure Done: Laparoscopic appendectomy. Specimens removed/disposition: 1. Peritoneal fluid for Gram stain, aerobic and anaerobic cultures. 2. Appendix. Surgeon: Emiliano Jarrett Anesthesia: General Estimated blood loss (mL): 10 Complications: None. Condition: stable Disposition: PACU Procedure: The patient was brought to the Operating Room and was placed in a supine position on the operating room table. General endotracheal anesthesia was induced. The abdomen was prepped and draped in a sterile fashion. A small vertical incision was carried out above the umbilicus. Blunt dissection was carried out down to the fascia, which was grasped with a Paul clamp. A stay suture of 0 Vicryl was placed on either side of the midline and the midline fascia was incised. The underlying peritoneum was opened bluntly and the Pelon port was placed directly into the peritoneal cavity and was held in place with the inflatable balloon. The peritoneal cavity was insufflated with carbon dioxide. The laparoscope was used to inspect the peritoneal cavity. The patient had a small amount of cloudy but watery brown fluid through the lower abdomen. Two 5- millimeter ports were placed in the left lower quadrant under direct vision. Some fluid was suctioned out into a sterile Lukens tube to be sent for Gram stain, aerobic and anaerobic cultures. The patient was tilted in a Trendelenburg position and slightly to the left side. A laparoscopic [place] was used to elevate the cecum and the appendix was easily identified. The appendix was hemorrhagic at its tip and had an area of perforation at its mid aspect. The mesoappendix was very edematous. The appendix was freed using blunt dissection and was then elevated. The mesoappendix was divided using cautery to maintain hemostasis at the base of the appendix. The base of the appendix appeared healthy and was divided using an endoscopic stapler. The appendix was removed from the peritoneal cavity after being placed in a laparoscopic bag. The lower quadrants and pelvis were irrigated. Extensive irrigation was then carried out through the entire abdomen using 6 L of saline until the irrigant returned clear. The staple line on the cecum was identified and appeared to be in good condition. The Pelon port was removed from the umbilical site and the stay sutures of Vicryl were tied to each other at the umbilicus. An additional [id number] suture of 0 Vicryl was placed, closing the fascial defect so that it was airtight. A final round of irrigation was carried out in the right lower quadrant and the pelvis. No ongoing problems were seen. The remaining ports were removed from the abdominal wall as the pneumoperitoneum was evacuated. All skin incisions were closed using inverted interrupted sutures of 4-0 Vicryl. Benzoin and Steri-Strips were placed over the incisions and Band- Aids followed. The patient was taken to the Recovery Room in stable condition postoperatively.
--- NOTE | 2019-05-03 08:17 | SUR.PHASEI ---
0753 PT REPORTCALLED TO FLOOR PT HERE WALKED UP TO FLOOR WITH PT,PT ALERT TALKATAIVE, VSS ABD LARGE BANDAIDS X 3 D/I 0810 PT AMBULATED TO BED , BP 97/59, HRE 94, RESP 20 SATS ON RA 96%
[2019-05-03] MEDS: famotidine 20 mg/2 mL INJ IVP ×2 (08:41→21:13)
[2019-05-03] MEDS: levofloxacin-dextrose 5 % 500 MG/100 ML PREMIX 100 MG IV (08:41)
[2019-05-03] MEDS: dextrose 5%-sod chloride 0.45% 1,000 ML 100 ML IV ×2 (08:42→21:14)
[2019-05-03] MEDS: heparin 5,000 unit/mL INJ 1 mL 5000 UNIT SUBCUT ×2 (08:42→21:13)
--- NOTE | 2019-05-03 12:36 | PC.CHAP ---
Pastoral Care Encounter/Spiritual Assessment Type of Contact [] Declined tombstone setter visit [] Patient/Family/Request visit [] Outpatient visit [] Follow-up visit [] Physician referral [] Code/Alert [x Routine visit [] Staff referral [] Actively dying [] Patient sleeping [] Family support [] [] Out of room [] Palliative care [] [] Receiving care in room [] Pre-surgical visit [] Trauma [] Long length of stay [] ICU visit [] Other: Relational/Emotional Strength [x] Patient feels connected with others/family/visitors/staff [] Distress [] Loneliness/isolation [] Abandonment Spirituality of Patient [x] Person of Rebecca [x] Attends Lutheran of their Rebecca [] Believes in Prayer [] Reads Bible or Confucianism materials [ There are Spiritual issues to be addressed Fraud Prevention Analyst Interventions [x] Prayer [] Active listening [x] Non-anxious presence [x] Spiritual/emotional support [] Crisis/trauma care [] Spiritual counseling [] Bereavement support [] Provided bereavement packet [] Provided Bible/devotional materials [] Provided toy/stuffed animal, coloring book to patient or family member [] Provided Communion [] Anointing/[place] [] Salvation [x] Completed spiritual assessment [] Other: Impact on Illness or Injury [] Angry [] Fearful [] Anxious [] Often cries [] Exhaustion [] Unable to work [] Unable to attend evangelical [] Unable to walk/stand [] Unable to read [] Unable to drive [] Unable to eat/drink [] Unable to sleep [] Unable to be with family [] Patient intubated [] Other: Summary Time spent with patient 10 min
[2019-05-03] MEDS: ceFAZolin 1,000 MG in sodium chloride 0.9% (plus) 50 ML 100 MG IV ×2 (16:20→21:13)
[2019-05-03] MEDS: HYDROcodone-acetaminophen 5-325 mg Tablet PO (16:24)
[2019-05-03] MEDS: levalbuterol 0.63 mg/3 mL Neb INHALATION (20:16)
[2019-05-04] VITALS (15 sets, daily range): BP systolic 120–180; BP diastolic 69–107; PULSE 75–105; RESP 17–24; TEMP 36.4–37.1; O2SAT 96–100
[2019-05-04] MEDS: metroNIDAZOLE IV 500 MG/100 ML PREMIX 100 MG IV ×3 (01:15→17:36)
[2019-05-04] MEDS: levalbuterol 0.63 mg/3 mL Neb INHALATION ×4 (03:17→20:27)
[2019-05-04 03:54] LABS: Basophils % 0.1 %; Eosinophils % 0.1 %; Hematocrit 35.5 % (42.0-52.0); Hemoglobin 11.2 g/dL (11.7-16.6); Lymphocytes % 7.1 %; Mean Corpuscular HGB Conc 31.5 g/dL (30.0-36.0); Mean Corpuscular Hemoglobin 31.1 pg (28.0-34.0); Mean Corpuscular Volume 98.6 fL (80-94); Monocytes # 0.7 10^3/uL (0.2-0.9); Monocytes % 5.1 %; Neutrophils # 12.1 10^3/uL (1.8-7.7); Nucleated Red Blood Cells % 0 %; Platelet Count 241 10^3/cmm (130-400); Red Cell Distribution Width 12.8 % (12.1-15.1); White Blood Count 13.9 10^3/uL (4.0-10.0)
[2019-05-04 04:31] LABS: Anion Gap 13.1 (5-19); Blood Urea Nitrogen 9 mg/dL (6-20); Calcium 8.7 mg/dL (8.5-10.5); Carbon Dioxide 23 mmol/L (22-29); Chloride 107 mmol/L (98-107); Glomerular Filtration Rate 123.7 mL/min (90-130); Glucose 137 mg/dL (65-115); Osmolality Calculated 286 mOsm/kg (285-295); Potassium 4.1 mmol/L (3.5-5.1); Sodium 139 mmol/L (136-145)
[2019-05-04] MEDS: ceFAZolin 1,000 MG in sodium chloride 0.9% (plus) 50 ML 100 MG IV (06:16)
[2019-05-04] MEDS: HYDROcodone-acetaminophen 5-325 mg Tablet PO ×3 (07:39→21:37)
[2019-05-04] MEDS: dextrose 5%-sod chloride 0.45% 1,000 ML 100 ML IV ×2 (07:40→17:36)
[2019-05-04] MEDS: levofloxacin-dextrose 5 % 500 MG/100 ML PREMIX 100 MG IV (07:41)
[2019-05-04] MEDS: heparin 5,000 unit/mL INJ 1 mL 5000 UNIT SUBCUT ×2 (07:43→19:59)
--- NOTE | 2019-05-04 09:00 | PC.NURSE ---
Patient reports passing gas after ambulation.
[2019-05-04] MEDS: famotidine 20 mg/2 mL INJ IVP ×2 (09:49→20:00)
--- NOTE | 2019-05-04 12:15 | P.PN_ITS ---
Subjective Subjective: Interval history: The patient says he is feeling better. He is actually passing flatus and would appreciate some solid food. Vitals/I&O/Wt Last Vital Signs Temp 98.2 F 05/04/19 10:59 Pulse 81 05/04/19 10:59 Resp 18 05/04/19 10:59 BP 161/98 05/04/19 10:59 Pulse Ox 100 05/04/19 10:59 05/03/19 05/04/19 05/04/19 22:59 06:59 14:59 Intake Total 2101.667 / 2661.667 953.333 / 3615.000 620 / 620 Output Total 0 / 10 610 / 620 Balance 2101.667 / 2651.667 343.333 / 2995.000 620 / 620 Weight last 48 hrs Weight 218 lb Weight 200 lb Physical Exam Narrative: EXAM NARRATIVE: Bowel sounds are little bit more active. The wounds look good. Data : 05/04/19 03:30 05/04/19 03:30 Micro: Microbiology 05/03/19 06:40 Gram Stain - Final Peritoneal Fluid Body Fluid Culture - Preliminary Gram Negative Rods 05/03/19 00:19 Blood Culture - Preliminary Blood NEGATIVE TO DATE 05/03/19 00:18 Blood Culture - Preliminary Blood NEGATIVE TO DATE Gram Stain Final 05/03/19-0913 Result FEW GRAM NEGATIVE RODS FEW SMALL GRAM POSITIVE RODS RESEMBLING DIPHTHERIODS MODERATE WHITE BLOOD CELLS RARE GRAM POSITIVE COCCI IN PAIRS A&P Assessment and plan (1) Acute appendicitis with perforation and generalized peritonitis: Status post laparoscopic appendectomy on 05/03/2019. The patient did have evidence of some diffuse but early perforation. His Gram stain shows multiple organisms as expected. I told him that I would like to see his white blood cell count normalized and for him to remain afebrile before discharge. Also, it would be helpful to have the identities and sensitivities of the peritoneal organisms so that we can tailor his outpatient antibiotic regimen. He is in agreement. Status: Acute Qualifiers: Appendicitis abscess presence: without abscess Appendicitis gangrene presence: without gangrene Qualified Code(s): K35.20 - Acute appendicitis with generalized peritonitis, without abscess Code(s): K35.20 - Acute appendicitis with generalized peritonitis, without abscess Attestations Medical Necessity Statement*: The patient will remain in inpatient status for intravenous antibiotics following a perforated appendicitis. 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
--- NOTE | 2019-05-04 12:57 | ANE.PACU2 ---
 Inpatient post-anesthesia follow up: Airway intact: Yes Vital signs: Temperature 98.2 F Pulse Rate [Monito r] 102 Pulse Rate 81 Respiratory Rate 18 Blood Pressure [Le ft Arm] 107/55 Blood Pressure 161/98 Pulse Oximetry 100 Oxygen Delivery Me thod Room Air Oxygen Flow Rate Fraction of Inspir ed Oxygen Hydration adequate: Yes Nausea and vomiting: No Pain level: 4 Mental status: Baseline
--- NOTE | 2019-05-04 20:11 | PC.NURSE ---
pt reports he is voiding well going to bathroom place urinal in bathroom and encourage pt to void in it.
[2019-05-05] VITALS: BP 112/71; PULSE 88; RESP 16; TEMP 37.1; O2SAT 95
[2019-05-05] MEDS: metroNIDAZOLE IV 500 MG/100 ML PREMIX 100 MG IV (01:58)
[2019-05-05] MEDS: dextrose 5%-sod chloride 0.45% 1,000 ML 100 ML IV (01:59)
[2019-05-05 04:00] VITALS: BP 123/78; PULSE 85; RESP 20; TEMP 37.1; O2SAT 96
[2019-05-05 06:15] LABS: Basophils % 0.2 %; Eosinophils # 0.1 10^3/uL (0.0-0.8); Eosinophils % 1.4 %; Hematocrit 34.4 % (42.0-52.0); Hemoglobin 11.1 g/dL (11.7-16.6); Lymphocytes # 1.7 10^3/uL (0.8-4.8); Lymphocytes % 17.7 %; Mean Corpuscular HGB Conc 32.3 g/dL (30.0-36.0); Mean Corpuscular Hemoglobin 30.8 pg (28.0-34.0); Mean Corpuscular Volume 95.6 fL (80-94); Mean Platelet Volume 9.3 fL (7.4-10.4); Monocytes # 0.6 10^3/uL (0.2-0.9); Monocytes % 6.3 %; Neutrophils # 7.3 10^3/uL (1.8-7.7); Neutrophils % 74.2 %; Nucleated Red Blood Cells % 0 %; Platelet Count 243 10^3/cmm (130-400); Red Cell Distribution Width 12.8 % (12.1-15.1); White Blood Count 9.8 10^3/uL (4.0-10.0)
[2019-05-05 07:48] VITALS: BP 135/82; PULSE 88; RESP 20; TEMP 37.1; O2SAT 96
[2019-05-05] MEDS: HYDROcodone-acetaminophen 5-325 mg Tablet PO (07:57)
[2019-05-05] MEDS: famotidine 20 mg/2 mL INJ IVP (07:57)
[2019-05-05] MEDS: heparin 5,000 unit/mL INJ 1 mL 5000 UNIT SUBCUT (07:59)
[2019-05-05] MEDS: levofloxacin-dextrose 5 % 500 MG/100 ML PREMIX 100 MG IV (08:00)
--- NOTE | 2019-05-05 08:58 | PM.DCS ---
Discharge Providers Date of Admission: 05/03/19 02:23 Date of Discharge: May 05, 2019 Attending Provider at Admission: Emiliano Jarrett MD Attending Provider at Discharge: Emiliano Jarrett MD Diagnoses at Discharge Discharge Diagnosis (1) Acute appendicitis with perforation and generalized peritonitis: Status: Acute Qualifiers: Appendicitis abscess presence: without abscess Appendicitis gangrene presence: without gangrene Qualified Code(s): K35.20 - Acute appendicitis with generalized peritonitis, without abscess Reason for Visit Reason for Visit: Reason For Visit: ABD PAIN Hospital Course Discharge Summary: Patient presented to the emergency room with a 1 day history of abdominal pain. A CAT scan revealed evidence of acute appendicitis with perforation. He was taken to the operating room the same day and laparoscopy revealed some watery fluid in the pelvis. His appendix was clearly the source of the infection. He underwent an appendectomy and extensive irrigation of the abdomen. Some of the fluid was sent to the lab for Gram stain and cultures. He was kept on broad-spectrum antibiotics. The patient's hospitalization was essentially unremarkable. By the second hospital day he had been afebrile for over 24 hours and his white blood cell count was normal. He was passing flatus and tolerating a regular diet and was anxious to go home. His Gram stain had revealed predominantly some gram-negative rods, but identification and sensitivities were still pending. I made him aware it was a little bit risky to send him home without having all of this information available, but thought we could probably convert him to oral antibiotics reasonably safely. He was agreeable. He was instructed with respect to wound care, activity limitations, diet, etc. Arrangements were made for the patient to follow-up in my office as an outpatient. Physical Exam Narrative: EXAM NARRATIVE: At the time of discharge, the patient's abdomen revealed the expected amount of tenderness and had good bowel sounds. All of the incisions appear to be healing well. Discharge Data Data Completed and Pending: Completed Studies During Hospitalization Category Date Time Status CT abdomen pelvis w con* [id number] Urge nt Cat Scan 05/03/19 00:28 Completed Pathology: Surgic al [PTH] Routine Pth 05/03/19 10:24 Completed Pending at discharge Category Date Time Status Anaerobic Culture Routine Lab 05/03/19 06:40 Results Blood Culture Sta t Lab 05/03/19 00:19 Results Body Fluid Cultur e & GS Stat Lab 05/03/19 06:40 Results Labs from last 24 hours 05/05/19 05:23 WBC 9.8 RBC 3.60 L Hgb 11.1 L Hct 34.4 L MCV 95.6 H MCH 30.8 MCHC 32.3 RDW 12.8 Plt Count 243 MPV 9.3 Neut % (Auto) 74.2 Lymph % (Auto) 17.7 [place] % (Auto) 6.3 Eos % (Auto) 1.4 Baso % (Auto) 0.2 Neut # (Auto) 7.3 Lymph # (Auto) 1.7 [place] # (Auto) 0.6 Eos # (Auto) 0.1 Baso # (Auto) 0.0 Nucleated RBC % (a uto) 0 Nucleated RBCs # 0.0 Vitals: Last Vital Signs Temp 98.7 F 05/05/19 07:48 Pulse 88 05/05/19 07:48 Resp 20 H 05/05/19 07:48 BP 135/82 05/05/19 07:48 Pulse Ox 96 05/05/19 07:48 Discharge Plan Discharge Patient Disposition: Home, Self-Care Condition: Stable Prescriptions: New hydrocodone-acetaminophen 5-325 mg tablet 1 - 2 tab PO Q5H PRN (Reason: pain) Qty: 30 RF: 0 ciprofloxacin HCl 500 mg tablet 500 mg PO BID Qty: 14 RF: 0 metronidazole 500 mg tablet 500 mg PO TID Qty: 20 RF: 0 Continued multivitamin Capsule 1 cap PO DAILY RF: 0 albuterol sulfate 2 inh inhalation Q8H PRN (Reason: Shortness Of Breath) RF: 0 Discharge Orders: Discharge Order (Routine); Ordered 05/05/19 Ordered By: Emiliano Jarrett Referrals: Emiliano Jarrett MD [Physician] - 2 weeks (Nursing: Please call Dr. Jarrett's office ([phone]) and make an appointment for the patient to be seen in 10-14 days.) Discharge Diet: Advance as tolerated Discharge Activity: Limit activity as instructed Patient Instructions: Appendicitis (GEN) Activity Restrictions/Additional Instructions: 1. Discharge to home today. 2. Appointment to see Dr. Jarrett in 10-14 days. 3. Leave Steri-Strip(s) on, may shower. 4. Alexander 5/325 1-2 tablets by mouth every 5 hours as needed for pain. #30, no refills. 5. Ciprofloxacin 500 mg 1 tablet by mouth twice daily. #14, no refills. 6. Metronidazole 500 mg 1 tablet by mouth 3 times daily. #20, no refills. No lifting over 20 pounds, no repetitive bending or twisting, no strenuous pushing / pulling or other heavy activity. Ambulate regularly. May go up and down steps if needed. 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
--- NOTE | 2019-05-05 10:24 | PC.NURSE ---
Discharge Discharge information given per the physician's orders. Patient verbalized understanding and did not have any further questions.
[2019-05-05 10:44] VITALS: BP 135/82; PULSE 88; RESP 20; TEMP 37.1; O2SAT 96
== END 2019-05-05 10:45 | disposition home or self-care (01) | DRG 340 ==
LOC: ER 05-03 02:23 → MEDSURG 05-03 02:35
PROVIDERS: Physician Assistant; Admitting Provider Surgery; Emergency Provider Emergency Medicine; Visit Provider Surgery
PROC: 0DTJ4ZZ Resection of Appendix, Percutaneous Endoscopic Approach (ICD-10-PCS; CPT 44970; principal; 2019-05-03 06:00)
DX: K35.32 Acute appendicitis with perforation, localized peritonitis, and gangrene, without abscess (principal); F17.210 Nicotine dependence, cigarettes, uncomplicated; E66.01 Morbid (severe) obesity due to excess calories; Z79.82 Long term (current) use of aspirin; Z68.37 Body mass index [BMI] 37.0-37.9, adult
CPT/HCPCS: 12345; 36415; 74177; 80048; 80053; 81001; 83605; 83690; 85025; 85730; 87040; 87070; 87075; 87077; 87186; 87205; 88304; 94640; 96372; 96375; 99284; A9270; J0131; J0330; J0690; J1644; J1956; J2001; J2270; J2405; J2704; J2710; J3010; J3490; J7030; J7614; J7799; Q9967; S0030

== ENCOUNTER 2019-11-21 17:01 | Emergency (ER) | payer OTHER, SELFPAY ==
[2019-11-21 17:08] VITALS: BP 156/94; PULSE 107; RESP 18; TEMP 37.7; O2SAT 97; BMI 36.0
--- NOTE | 2019-11-21 17:31 | W.ED.URI ---
HPI - URI/Sore Throat General: Chief Complaint: Upper Respiratory Infection Stated Complaint: cough, congestion, fever Time Seen by Provider: 11/21/19 17:19 History of Present Illness: HPI Narrative: Patient is a 44-year-old male who comes to the ED with fever, cough and nasal congestion. Symptoms started on Wednesday. He describes his cough is productive and he is white to yellow phlegm. He had a mild sore throat that has since resolved. He has been taking Mucinex to help with his symptoms. Patient's family is all been tested for COVID and they have all been negative. Patient has albuterol breathing treatments at home. Associated symptoms: Reports fever(s) and nasal congestion; Deny abdominal pain, chills, chest pain, diarrhea, headache(s), nausea or vomiting Review of Systems Const: Reports: fever(s); Denies: chills or fatigue Eyes: Denies: change in vision or eye discomfort ENMT: Reports: throat pain (sore throat a couple days ago but it has resolved), nasal discharge and nasal congestion; Denies: odynophagia Card: Denies: chest pain, palpitations, edema, swelling of feet/ankles, dyspnea on exertion or orthopnea Resp: Reports: productive cough, wheezing and change in phlegm color (White and yellow); Denies: dyspnea or non-productive cough GI: Denies: abdominal pain, nausea, vomiting, diarrhea, constipation or hematochezia : Denies: flank pain, difficulty urinating, dysuria or hematuria Musc: Denies: neck pain, back pain or extremity swelling Skin/Breast: Denies: rash or new lesions Neuro: Denies: headache(s), numbness in extremities or weakness in extremities PFSH ED PFSH: Medical History Bronchitis Occipital neuralgia primarily R side affected Surgical History No significant past surgical history Social History Smoking and tobacco status: current every day smoker cigarettes Packs smoked per day: 0.75 Years cigarettes smoked: 25 [ Other cigarette details: The patient smokes under a pack of cigarettes a day but has been smoking for nearly 30 years ] Alcohol intake: current Alcohol intake frequency: few times a month Current occupational status: employed Current occupation: Employed at a [employer] Physical Exam Const: COMMON NORMALS: no acute distress, patient oriented x3 and alert GENERAL APPEARANCE: cooperative and comfortable HENMT: COMMON NORMALS: normocephalic HEAD & SCALP: normocephalic MOUTH: Normal oral and palatal mucosa present THROAT: posterior oropharynx normal and uvula midline Neck/C-Spine: COMMON NORMALS: supple GENERAL: Yes normal visual inspection Resp: COMMON NORMALS: normal respiratory effort, No retractions and No use of accessory muscles EFFORT & INSPECTION: Yes able to speak in complete sentences and No tachypneic AUSCULTATION: wheezes expiratory wheezes, scattered wheezes and throughout Cardio: COMMON NORMALS: regular rate, regular rhythm, S1 normal heart sound present, S2 normal heart sound present, No gallops present (Cardio), No clicks present (Cardio), No murmurs present (Cardio) and Peripheral pulses 2+ throughout RATE: regular rate RHYTHM: regular rhythm HEART SOUNDS: S1 normal heart sound present and S2 normal heart sound present PERIPHERAL PULSES: Peripheral pulses 2+ throughout GI: COMMON NORMALS: Normal to inspection, nondistended, normoactive bowel sounds present, Soft to palpation, non-tender and no masses PALPATION: Yes Soft to palpation : COMMON NORMALS: Yes no CVA tenderness BLADDER/KIDNEY EXAM: Yes no CVA tenderness Back/Pelvis: COMMON NORMALS: no CVA tenderness Extremity: COMMON NORMALS: normal to inspection Neuro: COMMON NORMALS: patient oriented x3 and moves all extremities SENSORIUM/ORIENTATION: Yes alert Skin: COMMON NORMALS: no rashes or lesions noted GENERAL SKIN EXAM: no rashes or lesions noted Course Reevaluation(s): Reevaluation #1: I auscultated patient's lungs after albuterol breathing treatment. Wheezing improved. Vital Signs: Vital signs: Vital Signs Temperature 99.9 F H 11/21/19 17:08 Pulse Rate 95 11/21/19 18:25 Respiratory Rate 18 11/21/19 18:20 Blood Pressure 133/84 11/21/19 19:23 Pulse Oximetry 95 11/21/19 18:20 MDM - URI/Sore Throat MDM Narrative: Medical decision making narrative: Patient is a 44-year-old male who comes to the ED with productive cough, fever and nasal congestion drainage. Patient had expiratory wheezing throughout lungs upon auscultation. Patient appeared in no acute respiratory distress. COVID 19 testing was performed and is pending. Chest x-ray showed no acute lung findings. Patient was given albuterol inhaler treatment while here in the ED and symptoms improved. Patient was given an IM dose of Solu-Medrol and 500 mg of azithromycin. He was diagnosed with bronchitis and given a prescription for azithromycin and prednisone. Patient has albuterol inhaler at home that he can use for any wheezing or shortness of breath. Patient was told to self quarantine for the next 3 days pending COVID testing results. I told patient to call [facility] in 2 to 3 days to check on results of COVID testing. Return to ED precautions given. Follow-up with PCP in 7 to 10 days. Patient understood agree with plan. Imaging Data^: CXR: Attestation: I personally reviewed and interpreted this imaging study as follows: Radiologist's impression: [place] [id number] XRay Report Signed Patient: Onel Rea Unit #: [id number] : 1975 Age/Sex: 44 / M ADM Date: 11/21/19 Loc: ER Room/Bed: Attending Dr: Ordering Provider/Ordering MD: Sohail Hendrickson Date of Service: 11/21/19 Procedure(s): XR chest 1V portable [id number] Accession Number(s): [id number] Report Number: [id number] WS: [id number] EXAM: AP CHEST: PORTABLE UPRIGHT DATE OF EXAM: 11/21/2019, 1800 hours COMPARISON: Chest x-ray from 03/13/2019 HISTORY: Patient is 44 years old with cough, fever and wheezing. FINDINGS: The cardiac silhouette is normal in size. The mediastinal contours are normal. The pulmonary vascularity is normal. The lungs are clear of infiltrate. There is no effusion or pneumothorax. No acute bony abnormality is seen. XR/XR chest 1V portable [id number] IMPRESSION: No acute pulmonary disease. Dictated By: Ovi Khan MD Signed By: Ovi Khan MD Signed Date/Time: 11/21/191815 DD/ 1815 Discharge Plan Discharge Patient Disposition: Home Clinical Impression: Bronchitis Condition: Stable Prescriptions: New azithromycin 250 mg tablet 250 mg PO DAILY 4 Days Qty: 4 RF: 0 prednisone 50 mg tablet 50 mg PO DAILY 5 Days Qty: 5 RF: 0 No Action multivitamin Capsule 1 cap PO DAILY RF: 0 albuterol sulfate 2 inh inhalation Q8H PRN (Reason: Shortness Of Breath) RF: 0 Allergy 25 mg Tablet 25 mg PO Q6H PRN (Reason: ALLERGIES) RF: 0 Otc Testosterone 1 tab PO DAILY RF: 0 Discharge Orders: Discharge Order (Routine); Ordered 11/21/19 Ordered By: Sohail Hendrickson Discharge Diet: Regular Discharge Activity: Limit activity as instructed Patient Instructions: Bronchitis (Acute) - Adult Activity Restrictions/Additional Instructions: Follow-up with medical provider as directed in 7-10 days. Take medications as prescribed. Self quarantine for the next 12 days pending COVID-19 testing results. COVID testing results should be back in the next 2 to 3 days. Call [facility] to get results or they will call you as soon as results are reported. Return to the ER or your medical provider if condition worsens. Please read and understand discharge instructions. If any questions, please ask. Discharge Date/Time: 11/21/19 19:24 Coding Level of Care Code ED Organizational Development Director for Kirti Lancaster Exam Comprehensive
--- NOTE | 2019-11-21 17:48 | XR_ITS ---
WS: [id number] EXAM: AP CHEST: PORTABLE UPRIGHT DATE OF EXAM: 11/21/2019, 1800 hours COMPARISON: Chest x-ray from 03/13/2019 HISTORY: Patient is 44 years old with cough, fever and wheezing. FINDINGS: The cardiac silhouette is normal in size. The mediastinal contours are normal. The pulmonary vas cularity is normal. The lungs are clear of infiltrate. There is no effusion or pneumothorax. No ac [place] bony abnormality is seen. XR/XR chest 1V portable [id number] IMPRESSION: No acute pulmonary disease.
[2019-11-21] MEDS: albuterol 8 gm MDI 2 PUFF INHALATION (18:19)
[2019-11-21 18:20] VITALS: PULSE 94; RESP 18; O2SAT 95
[2019-11-21 18:25] VITALS: PULSE 95
[2019-11-21] MEDS: azithromycin 250 mg Tablet 500 MG PO (19:11)
[2019-11-21] MEDS: ibuprofen 600 mg Tablet PO (19:11)
[2019-11-21 19:23] VITALS: BP 133/84
[2019-11-23 18:53] LABS: Quest SARS-CoV-2 RNA NOT DETECTED (NOT DETECTED)
== END 2019-11-21 19:24 | disposition home or self-care (01) ==
PROVIDERS: Emergency Provider Physician Assistant
DX: J40 Bronchitis, not specified as acute or chronic (principal); F17.210 Nicotine dependence, cigarettes, uncomplicated
CPT/HCPCS: 12345; 71045; 87635; 94640; 99283; J2930; J3535; Q0144